=== PATIENT | female | born 2000 | race Caucasian/White ===

== ENCOUNTER 2022-08-29 17:06 | Emergency (ER) | payer SELFPAY ==
[~2022-08-29] VITALS: Ht 165.1 cm; Wt 64.0 kg
[2022-08-29 17:08] VITALS: BP 121/81
[2022-08-29] MEDS ORDERED: ACETAMINOPHEN 325MG TABLET PO ONE (17:30)
[2022-08-29] MEDS ORDERED: LORAZEPAM 0.5MG TABLET PO ONE (19:30)
[2022-08-29] MEDS ORDERED: ACET-2708 MT (19:33)
[2022-08-29] MEDS ORDERED: CYCL10TA21 MT (19:33)
== END 2022-08-29 20:00 | disposition home or self-care (01) ==
LOC: ER 17:06
DX: M54.50 Low back pain, unspecified (principal)
CPT/HCPCS: 81025; 99283